=== PATIENT | male | born 1990 | race Caucasian/White ===

== ENCOUNTER 2021-06-22 21:24 | Emergency (ER) | payer OTHER, SELFPAY ==
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
--- NOTE | ~2021-06-22 | XR_ITS ---
EXAMINATION: XR CLAVICLE, LEFT XR SHOULDER, LEFT XR HUMERUS, LEFT CLINICAL INFORMATION: Left upper extremity injury. COMPARISON: None TECHNIQUE: AP view of the left clavicle. AP, Grashey, and scapular Y views of the left shoulder. AP and lateral views of the left humerus. 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 Findings could represent a congenital malformation versus postsurgical change. No lytic or blastic osseous lesion. No abnormal soft tissue calcification. LEFT SHOULDER: No acute fracture or dislocation. No joint space narrowing or marginal osteophytes. No osseous erosion. No abnormal soft tissue calcification. LEFT HUMERUS: No fracture or dislocation. No lytic or blastic osseous lesion. No abnormal soft tissue calcification. XR/XR shoulder LT min 2V IMPRESSION: LEFT CLAVICLE: No acute osseous abnormality. Absence of the lateral left clavicle, which could represent congenital malformation versus postsurgical change. LEFT SHOULDER: No acute osseous abnormality. LEFT HUMERUS: No acute osseous abnormality.
--- NOTE | ~2021-06-22 | XR_ITS ---
EXAMINATION: XR CLAVICLE, LEFT XR SHOULDER, LEFT XR HUMERUS, LEFT CLINICAL INFORMATION: Left upper extremity injury. COMPARISON: None TECHNIQUE: AP view of the left clavicle. AP, Grashey, and scapular Y views of the left shoulder. AP and lateral views of the left humerus. 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 Findings could represent a congenital malformation versus postsurgical change. No lytic or blastic osseous lesion. No abnormal soft tissue calcification. LEFT SHOULDER: No acute fracture or dislocation. No joint space narrowing or marginal osteophytes. No osseous erosion. No abnormal soft tissue calcification. LEFT HUMERUS: No fracture or dislocation. No lytic or blastic osseous lesion. No abnormal soft tissue calcification. XR/XR clavicle LT IMPRESSION: LEFT CLAVICLE: No acute osseous abnormality. Absence of the lateral left clavicle, which could represent congenital malformation versus postsurgical change. LEFT SHOULDER: No acute osseous abnormality. LEFT HUMERUS: No acute osseous abnormality.
--- NOTE | ~2021-06-22 | XR_ITS ---
EXAMINATION: XR CLAVICLE, LEFT XR SHOULDER, LEFT XR HUMERUS, LEFT CLINICAL INFORMATION: Left upper extremity injury. COMPARISON: None TECHNIQUE: AP view of the left clavicle. AP, Grashey, and scapular Y views of the left shoulder. AP and lateral views of the left humerus. 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 Findings could represent a congenital malformation versus postsurgical change. No lytic or blastic osseous lesion. No abnormal soft tissue calcification. LEFT SHOULDER: No acute fracture or dislocation. No joint space narrowing or marginal osteophytes. No osseous erosion. No abnormal soft tissue calcification. LEFT HUMERUS: No fracture or dislocation. No lytic or blastic osseous lesion. No abnormal soft tissue calcification. XR/XR humerus LT IMPRESSION: LEFT CLAVICLE: No acute osseous abnormality. Absence of the lateral left clavicle, which could represent congenital malformation versus postsurgical change. LEFT SHOULDER: No acute osseous abnormality. LEFT HUMERUS: No acute osseous abnormality.
[2021-06-22 21:48] VITALS: BP 137/76; PULSE 94; RESP 18; TEMP 36.5; O2SAT 96; BMI 27.3
[2021-06-22] MEDS: Ondansetron ODT 4 MG TAB.RAPDIS TRANSLINGU (22:50)
[2021-06-22] MEDS: Acetaminophen 325 MG TABLET 650 MG PO (23:00)
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
--- NOTE | 2021-06-22 23:53 | PC.NURSE ---
PT HAD 1 EPISODE [facility]
[2021-06-23 00:07] VITALS: BP 115/69; PULSE 98; RESP 16; O2SAT 99
--- NOTE | 2021-06-23 01:11 | PC.NURSE ---
PT PLACED ON MONITOR SPO2 100% ON 2 L PT WILL BE RECHECKED IN THE MORNING WITH REPEAT IMAGING FOR NOW HE WILL BE OBSERVED IN THE ED UNTIL MORNING. PT MOVED TO ROOM 17 AND REPORT GIVEN TO PENNY CLANCY.
[2021-06-23 01:56] VITALS: BP 136/60; PULSE 87; RESP 18; O2SAT 100
[2021-06-23 06:02] VITALS: PULSE 64; RESP 16; O2SAT 100
[2021-06-23 06:56] VITALS: PULSE 65; RESP 16; O2SAT 98
--- NOTE | 2021-06-23 07:19 | PC.NURSE ---
report taken from Rashmi FRANCIS. patient sleeping upon assessment. mother at bedside. order for repeat xray at 0800, mother aware. patient on 2L upon assessment, mother reports no O2 use at home. o2 shut off, patient o2 sat WNL.
[2021-06-23 08:21] VITALS: BP 110/73; PULSE 81; RESP 15; TEMP 36.8; O2SAT 97
== END 2021-06-23 09:11 | disposition home or self-care (01) ==
PROVIDERS: Emergency Provider Emergency Medicine
DX: J93.9 Pneumothorax, unspecified (principal); S20.212A Contusion of left front wall of thorax, initial encounter; V23.4XXA Motorcycle driver injured in collision with car, pick-up truck or van in traffic accident, initial encounter; F17.210 Nicotine dependence, cigarettes, uncomplicated; Y93.89 Activity, other specified; Y92.414 Local residential or business street as the place of occurrence of the external cause; Y99.9 Unspecified external cause status
CPT/HCPCS: 70450; 71046; 72125; 73000; 73030; 73060; 99284

== ENCOUNTER 2023-07-18 07:21 | Emergency (ER) | payer OTHER, SELFPAY ==
--- NOTE | ~2023-07-18 | XR_ITS ---
EXAMINATION: XR FOOT, LEFT CLINICAL INFORMATION: Laceration and injury COMPARISON: None available. TECHNIQUE: AP, lateral, and oblique views of the left foot. FINDINGS: Bones of the midfoot are well aligned. No acute tarsal, metatarsal or phalangeal fracture. There is blunting of the distal phalanx of the first toe which appears to be a chronic finding. There are no significant degenerative changes of the left foot. No localized soft tissue swelling. Soft tissue irregularity along the medial aspect of the first metatarsal head consistent with reported history of laceration. There is no underlying bony abnormality. No radiopaque foreign body. XR/XR foot LT 2V IMPRESSION: Soft tissue irregularity along the medial aspect of the first metatarsal head consistent with reported history of laceration. There is no underlying bony abnormality. No radiopaque foreign body.
[2023-07-18 07:24] VITALS: BP 110/62; PULSE 73; RESP 16; TEMP 36.6; O2SAT 97; BMI 28.3
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
[2023-07-18 08:23] VITALS: BP 108/73; PULSE 74; RESP 18; O2SAT 98
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
[2023-07-18] MEDS: Lidocaine HCl 1 % MPF 5 ML VIAL INFILTRATI (08:55)
--- NOTE | 2023-07-18 08:55 | PC.NURSE ---
provider at bedside doing sutures. pt tolerating procedure well.
[2023-07-18] MEDS: Bacitracin Oint 0.9 GM PACKET 1 APPL TOPICAL (09:25)
[2023-07-18] MEDS: Doxycycline Monohydrate 100 MG CAPSULE PO (09:25)
== END 2023-07-18 09:54 | disposition home or self-care (01) ==
PROVIDERS: Emergency Provider Emergency Medicine
DX: S91.312A Laceration without foreign body, left foot, initial encounter (principal); S97.82XA Crushing injury of left foot, initial encounter; V98.8XXA Other specified transport accidents, initial encounter; Y93.89 Activity, other specified; Y92.512 Supermarket, store or market as the place of occurrence of the external cause; Y99.0 Civilian activity done for income or pay
CPT/HCPCS: 12002; 73620; 99284